=== PATIENT | male | born 1940 | race Caucasian/White ===

== ENCOUNTER 2018-08-18 17:51 | Emergency (ER) | payer MEDICARE, BC ==
[2018-08-18 18:02] VITALS: BP 186/89
--- NOTE | 2018-08-18 18:13 | EDM.PDOC ---
ED HPI GENERAL MEDICAL PROBLEM - General Chief Complaint: Lower Extremity Injury/Pain Stated Complaint: TRAUMA VIA NORTH Time Seen by Provider: 08/18/18 17:55 Source of Information: Reports: Patient, EMS History Limitations: Reports: No Limitations - History of Present Illness INITIAL COMMENTS - FREE TEXT/NARRATIVE: 70-year-old male was working in his yard when he stumbled and fell awkwardly, feeling a snap in his lower right leg and now has significant discomfort with any movement or attempt at weightbearing of the lower right extremity. The pain is localized around the ankle and just above the ankle. He was brought in by EMS , he appears to have some possible lateral rotation at the ankle, no numbness or bruising. The knee is nontender, he did not get hurt elsewhere. Onset: Sudden Duration: Hour(s): (Within the last hour) Location: Reports: Lower Extremity, Right Associated Symptoms: Reports: No Other Symptoms Treatments BUSINESS ANALYST CONSULTANT: Reports: IV/IO, Other (see below) Other Treatments BUSINESS ANALYST CONSULTANT: Fentenyl 200mg IVP Right Lower Leg Pain Score (Numeric/FACES): 7 - Related Data Allergies Allergy/AdvReac Type Severity Reaction Status Date / Time No Known Allergies Allergy Verified 08/18/18 17:56 Home Meds: Home Meds Celecoxib [CeleBREX] 100 mg PO DAILY 10/28/13 [History] Lisinopril [Zestril] 20 mg PO DAILY 10/28/13 [History] Pantoprazole 20 mg PO DAILY 08/18/18 [History] Terazosin [Hytrin] 5 mg PO BEDTIME 08/18/18 [History] amLODIPine [Norvasc] 10 mg PO DAILY 08/18/18 [History] Past Medical History HEENT History: Reports: Hard of Hearing, Impaired Vision Cardiovascular History: Reports: Hypertension Gastrointestinal History: Reports: Diverticulosis Genitourinary History: Reports: Prostate Disorder Musculoskeletal History: Reports: Arthritis, Fracture Other Musculoskeletal History: Fibula fx r leg with plate l torn rotator cuff - Infectious Disease History Infectious Disease History: Reports: Chicken Pox, Measles, Mumps - Past Surgical History HEENT Surgical History: Reports: Tonsillectomy GI Surgical History: Reports: Appendectomy, Colonoscopy, Hernia, Abdominal, Hernia, Inguinal Musculoskeletal Surgical History: Reports: Shoulder Surgery Social & Family History - Tobacco Use Smoking Status *Q: Never Smoker Second Hand Smoke Exposure: No - Caffeine Use Caffeine Use: Reports: Coffee - Alcohol Use Days Per Week of Alcohol Use: 7 Number of Drinks Per Day: 2 Total Drinks Per Week: 14 - Recreational Drug Use Recreational Drug Use: No Review of Systems - Review of Systems Review Of Systems: See Below Constitutional: Denies: Fever Respiratory: Denies: Shortness of Breath Cardiovascular: Denies: Chest Pain GI/Abdominal: Denies: Abdominal Pain Skin: Denies: Bruising Neurological: Denies: Paresthesia Psychiatric: Reports: No Symptoms ED EXAM, GENERAL - Physical Exam Exam: See Below Exam Limited By: No Limitations General Appearance: Alert, Mild Distress (Patient looks fairly uncomfortable) Head: Atraumatic Respiratory/Chest: No Respiratory Distress Extremities: Other (Exam is otherwise limited to the lower extremities. He has well-healed surgical scars over the anterior aspect of the right knee from previous fractures and repair. He has significant tenderness to palpation and a step-off appreciated at the distal tibia and increased pain with plantar flexion of the foot actively. Dorsalis pedis pulses intact.) Neurological: Alert, Oriented Skin Exam: Warm, Dry Course - Vital Signs Last Recorded V/S: Last Vital Signs Temp 98.8 F 08/18/18 17:55 Pulse 85 08/18/18 17:55 Resp 22 H 08/18/18 17:55 BP 186/89 H 08/18/18 17:55 Pulse Ox 90 L 08/18/18 17:55 - Orders/Labs/Meds Orders: Active Orders 24 hr Category Date Time Status DME for Discharge [COMM] Stat Oth 08/18/18 19:10 Ordered Meds: Medications Discontinued Medications Generic Name Dose Route Start Last Admin Trade Name Ofelia PRN Reason Stop Dose Admin Fentanyl 50 mcg 08/18/18 18:51 08/18/18 18:56 Sublimaze IVPUSH 08/18/18 18:52 50 mcg ONETIME ONE Administration - Re-Assessments/Exams Free Text/Narrative Re-Assessment/Exam: 08/18/18 18:13 An x-ray of the right tib-fib and the right ankle were obtained. 08/18/18 19:10 X-ray confirmed a displaced spiral distal tibia fracture as well as a proximal fibular fracture. Orthopedics was consulted in [place], they recommended splinting over the knee, crutches, pain control, and he'll be called tomorrow for surgery. He was given one additional 50 g dose of fentanyl, 20 5 mg Percocet doses for pain control and will attempt to use crutches. If he does not feel he can go home, care was turned over to Dr. Kimble for more timely referral. 08/18/18 19:20 [place] [facility] did accept the patient tonight and he'll be transferred by private car for direct admit. Departure - Departure Time of Disposition: 19:48 Disposition: DC/Tfer to Other 70 Condition: Fair Clinical Impression: Fracture of tibia AND fibula - Discharge Information Instructions: Tibial Fracture, Adult Referrals: PCP,None [Primary Care Provider] - Forms: ED Department Discharge Care Plan Goals: Go directly to [facility] in [place] for direct admission, elevate leg in route. - My Orders Last 24 Hours: My Active Orders 08/18/18 19:10 DME for Discharge [COMM] Stat - Assessment/Plan Last 24 Hours: My Active Orders 08/18/18 19:10 DME for Discharge [COMM] Stat
--- NOTE | 2018-08-18 18:43 | CRLCR ---
HISTORY: Pain after injury. COMPARISON: None available. FINDINGS: AP, lateral and oblique views of the right ankle were obtained for a total of three views. There is an acute, oblique fracture of the distal tibial shaft with 30 percent lateral and 10 percent posterior displacement with less than 10 degrees medial and posterior angulation of the distal fracture fragment. There is no sign of an associated acute distal fibular fracture. There are changes of ORIF of a distal fibular fracture with intact metallic sideplate, anchoring screws, and a single interfragmentary screw. There is no sign of additional fracture or dislocation. The ankle mortise is intact. The talar dome is intact. There is no sign of a joint effusion. There is mild soft tissue swelling of the distal lower leg with no sign of any radiopaque foreign body. No degenerative changes are seen IMPRESSION: Acute, mildly displaced and minimally angulated, oblique fracture of the distal tibial shaft. No sign of acute fracture of the distal fibula. Satisfactory appearance of ORIF of a distal fibular fracture which has healed without deformity. Dictated by Sahil Saavdera MD @ Aug 18 2018 6:40PM Signed by Dr. Sahil Saavedra @ Aug 18 2018 6:42PM
--- NOTE | 2018-08-18 18:48 | CRLCR ---
INDICATION: Foot pain after injury. COMPARISON: Right ankle from today. TECHNIQUE: AP and lateral views of the right tibia and fibula were obtained. FINDINGS: There is an acute, oblique fracture of the proximal fibular shaft with 60 percent anterior and 20 percent lateral displacement along with 30 degrees posterior and 15 degrees medial angulation of the distal fracture fragment. The acute, mildly displaced and minimally angulated oblique fracture of the distal tibial shaft is described in the accompanying ankle report. There is no sign of a tibial fracture more proximally. There is mild soft tissue swelling around the proximal fibular fracture. A metallic plate from ORIF of a distal fibular fracture is again seen. There is minimal primary osteoarthritis of the medial joint compartment of the knee with mild joint space narrowing. The lateral joint space is normal in appearance. IMPRESSION: Acute, moderately displaced and mildly angulated, oblique fracture of the proximal fibular shaft. Acute, mildly displaced and minimally angulated oblique fracture of the distal tibial shaft. Dictated by Sahil Saavedra MD @ Aug 18 2018 6:43PM Signed by Dr. Sahil Saavedra @ Aug 18 2018 6:46PM
[2018-08-18] MEDS ORDERED: fentaNYL 100 MCG/2 ML SDV IVPUSH ONE (18:51)
--- NOTE | 2018-08-18 19:28 | CRLCR ---
Indication: Injury Technique: Two views of the right knee Comparison: None available Findings/Impression: Bones: A mildly displaced fracture of the proximal fibular diaphysis. No dislocation. Joint spaces: Mild narrowing of the medial compartment. An apparent small suprapatellar effusion. Soft tissues: Vascular calcifications. Dictated by Sahil Quiroz MD @ 08/18/2018 7:26:27 PM Dictated by: Sahil Quiroz MD @ 08/18/2018 19:26:37 (Electronically Signed)
== END 2018-08-18 19:48 | disposition other institution (70) ==
LOC: JP.ED 17:51
DX: S82.241A Displaced spiral fracture of shaft of right tibia, initial encounter for closed fracture (principal); S82.831A Other fracture of upper and lower end of right fibula, initial encounter for closed fracture; I10 Essential (primary) hypertension; Z79.899 Other long term (current) drug therapy; W01.0XXA Fall on same level from slipping, tripping and stumbling without subsequent striking against object, initial encounter
CPT/HCPCS: 73560; 73590; 73610; 96374; 99284; J3010

== ENCOUNTER 2020-07-07 06:45 | Day surgery (SDC) | payer MEDICARE, BC ==
[2020-07-07] MEDS ORDERED: fentaNYL 100 MCG/2 ML SDV ONE (07:15)
[2020-07-07] MEDS ORDERED: Propofol 200 MG/20 ML SDV ONE (07:15)
[2020-07-07] MEDS ORDERED: Midazolam 1 MG/ML 2 ML SDV ONE (07:15)
[2020-07-07] MEDS ORDERED: Dextrose 5%-Lactated Ringers 1,000 ML IV SCH (07:30)
[2020-07-07 09:46] VITALS: PULSE 72
[2020-07-07 10:19] VITALS: BP 135/73
--- NOTE | 2020-07-17 11:13 | OR ---
DATE OF PROCEDURE: 07/07/2020 SURGEON: Ned Sinclair MD PREOPERATIVE DIAGNOSES: History of colon polyps and anemia. POSTOPERATIVE DIAGNOSES: 1. Two very small polyps involving distal sigmoid colon. 2. Pandiverticulosis. OPERATIVE PROCEDURE: Flexible colonoscopy with: 1. Polypectomy by snare technique (81043). 2. Separate polypectomy by cold biopsy forceps (44040). ANESTHESIA: IV sedation. INDICATION FOR PROCEDURE: An 80-year-old male presenting with history of colon polyps for followup colonoscopy. The plan was to proceed with the colonoscopy with biopsies and polypectomy as indicated. Potential risks including bleeding and perforation were discussed, and the patient wishes to proceed. DETAILS OF PROCEDURE: The patient was taken to the operating room and placed in a left lateral decubitus position. IV sedation was administered, after which the initial digital rectal exam was performed and was unremarkable. Colonoscope was then passed to the level of the rectum with retroflexion revealing uncomplicated hemorrhoidal columns. Scope was eventually passed to the cecum. The prep was quite good. Only small amount of liquid stool was present. To that level, the patient had more or less a pandiverticulosis, but this diverticular disease was otherwise unremarkable. The prep overall was quite good. There were 2 small polyps, both in the distal sigmoid colon. One of these was large enough and removed by means of a snare technique, and this was accomplished, and that specimen then sent as a separate specimen. A smaller polyp was removed in its entirety with 2 bites of the cold biopsy forceps, and this likewise was sent for histologic evaluation, and the procedure then concluded. The patient was taken to the recovery room in satisfactory condition. Assuming the patient's general health remains good and the present biopsied polyps are read out as nonmalignant, consideration for a followup colonoscopy in 3 years would be warranted. Ned Sinclair MD /[id number]
== END 2020-07-07 10:31 | disposition home or self-care (01) ==
LOC: JP.SDS 06:45
PROVIDERS: ATTEND Surgery
DX: K63.5 Polyp of colon (principal); K57.30 Diverticulosis of large intestine without perforation or abscess without bleeding; D64.9 Anemia, unspecified; I10 Essential (primary) hypertension; G47.33 Obstructive sleep apnea (adult) (pediatric); E78.00 Pure hypercholesterolemia, unspecified; Z88.8 Allergy status to other drugs, medicaments and biological substances; Z86.010 Personal history of colon polyps
CPT/HCPCS: 45380; 45385; 88305; J2250; J2704; J3010; J7121